=== PATIENT | female | born 1980 | race Caucasian/White ===

== ENCOUNTER 2019-10-21 14:06 | Emergency (ER) | payer BC ==
[~2019-10-21] VITALS: Ht 157.5 cm; Wt 113.4 kg
[~2019-10-21 14:06] MED LIST: CIPROFLOXACIN500 M3; NOHOMEMEDICATIONS; PERCOCET 5-3251 EACH PO; PHENERGAN 25 MG25 M1 PO; PREDNISONE 20 M20 M1 PO; ULTRAM 50MG TAB50 MG PO; VICODIN 5-3001 EACH
[2019-10-21 15:38] LABS: URINE BILIRUBIN NEGATIVE (Negative); URINE BLOOD NEGATIVE (Negative); URINE CLARITY CLEAR; URINE COLOR YELLOW; URINE GLUCOSE-RANDOM NEGATIVE (Negative); URINE KETONES NEGATIVE (Negative); URINE LEUKOCYTES-REFLEX NEGATIVE (Negative); URINE NITRITE-REFLEX NEGATIVE (Negative); URINE PROTEIN NEGATIVE (Negative); URINE UROBILINOGEN 0.2 E.U./dl (0.2-1.0)
[2019-10-21 16:31] LABS: ABSOLUTE BASOPHILS 0.1 thou/uL (0.0-0.2); ABSOLUTE EOSINOPHILS 0.8 thou/uL (0.0-0.7); ABSOLUTE LYMPHOCYTES 2.6 thou/uL (0.8-5.3); ABSOLUTE MONOCYTES 0.8 thou/uL (0.0-1.2); ABSOLUTE NEUTROPHILS 7.9 thou/uL (1.6-8.1); BASOPHILS 0.9 %; EOSINOPHILS 6.8 %; HEMATOCRIT 40.5 % (37.0-47.0); HEMOGLOBIN 13.4 gm/dL (12.0-15.0); LYMPHOCYTES 21.2 %; MCH 28.7 pg (26.0-34.0); MONOCYTES 6.5 %; MPV 8.1 fl. (7.2-11.1); NUCLEATED RBCS 0 /100WBC; PLATELET COUNT* 360 thou/uL (150-400); POLYS 64.6 %; RBC 4.66 mil/uL (4.20-5.00); RDW-CV 14.9 % (10.5-14.5); WBC 12.2 thou/uL (4.0-11.0)
[2019-10-21 16:35] LABS: CALCIUM 8.7 mg/dL (8.5-10.1); CREATININE 0.8 mg/dL (0.6-1.3); POTASSIUM 3.9 mmol/L (3.5-5.1)
[2019-10-21 16:39] LABS: ALBUMIN 3.3 g/dL (3.4-5.0); TOTAL BILIRUBIN 0.3 mg/dL (<0.1-1.0); TOTAL PROTEIN 7.7 g/dL (6.4-8.2)
[2019-10-21] MEDS ORDERED: NORCO 5-325 TA1 EAC2 PO (18:01)
[2019-10-21 18:25] VITALS: BP 154/78
== END 2019-10-21 18:25 | disposition home or self-care (01) ==
LOC: M.ERS 14:06
PROVIDERS: Physician Assistant
DX: R10.31 Right lower quadrant pain (principal); Z90.49 Acquired absence of other specified parts of digestive tract; Z98.890 Other specified postprocedural states

== ENCOUNTER 2021-03-06 16:07 | Emergency (ER) | payer OTHER ==
[~2021-03-06] VITALS: Ht 157.5 cm; Wt 104.3 kg
[~2021-03-06 16:07] MED LIST changes: +NORCO 5-325 TA1 EAC2 PO
[2021-03-06 17:01] LABS: INFLUENZA A ANTIGEN Negative (Negative); INFLUENZA B ANTIGEN Negative (Negative)
[2021-03-06] MEDS ORDERED: TESSALON PERLE100 MG PO (17:58)
[2021-03-06] MEDS ORDERED: ZOFRAN ODT4 MG DISSOLVE (17:58)
[2021-03-06 18:03] VITALS: BP 186/85
== END 2021-03-06 18:04 | disposition home or self-care (01) ==
LOC: M.ERS 16:07
PROVIDERS: Nurse Practitioner Family
DX: U07.1 COVID-19 (principal); Z90.49 Acquired absence of other specified parts of digestive tract